=== PATIENT | male | born 1965 | race African-American/Black ===

== ENCOUNTER 2020-03-03 10:46 | Inpatient (IN) | payer OTHER ==
--- NOTE | 2020-03-03 11:06 | BHS.RME ---
Substance Use & Tx History - Substance Use History Alcohol Substance amount: 1 pint vodka Frequency of use: Daily Substance route: Oral Date of Last Use: 03/02/20 Physical/Psych/Mental Status - Behavior General Behavior: Increased activity (restlessness, agitation) Eye Contact: Normal - Cooperativeness Cooperativeness: Cooperative - Thinking Thought Processes: Tight, Logical, Goal Directed - Physical Health Problems Is patient presently having any pain?: No Does patient presently have any injuries (include location): No Does patient currently have a fever: No Is patient : No CIWA Nausea/Vomitin-Int. Nausea w/Dry Heave Muscle Tremors: 5 Anxiety: 2 Agitation: 3 Paroxysmal Sweats: 4-Forehead w/Sweat Beads Orientation: 1-Uncertain about Date Tacttile Disturbances: 0-None Auditory Disturbances: 0-None Visual Disturbances: 0-None Headache: 0-None Present CIWA-Ar Total Score: 19
[2020-03-03 11:39] VITALS: BMI 32.3
--- NOTE | 2020-03-03 12:13 | HP ---
CIWA Score Nausea/Vomitin-Int. Nausea w/Dry Heave Muscle Tremors: 5 Anxiety: 2 Agitation: 3 Paroxysmal Sweats: 4-Forehead w/Sweat Beads Orientation: 1-Uncertain about Date Tacttile Disturbances: 0-None Auditory Disturbances: 0-None Visual Disturbances: 0-None Headache: 0-None Present CIWA-Ar Total Score: 19 - Admission Criteria OASAS Guidelines: Admission for Medically Managed Detox: Requires at least one of the followin. CIWA greater than 12 2. Seizures within the past 24 hours 3. Delirium tremens within the past 24 hours 4. Hallucinations within the past 24 hours 5. Acute intervention needed for co occurring medical disorder 6. Acute intervention needed for co occurring psychiatric disorder 7. Severe withdrawal that cannot be handled at a lower level of care (continued vomiting, continued diarrhea, abnormal vital signs) requiring intravenous medication and/or fluids 8. Admitting History and Physical - Admission Chief Complaint: Mr. Nieves is a 54 yo gentleman who presents to [facility] requesting admission to detox for alcohol use disorder. History of Present Illness: Mr. Nieves is a 54 yo gentleman who presents to [facility] requesting admission to detox for alcohol use disorder. He was treated 5 years ago for alcohol use disorder at [facility]. He relapsed one month ago when his became ill. He states that she had a cardiac arrest at home and has been in [facility] since. He states that she has sustained "brain damage" and will be going to a senior living. PMH: HTN, Asthma PSH; none Psych: none SoC: lives in the [place], alone/ in hospital now Legal: none Substance Use History Alcohol Substance amount: 1 pint vodka Frequency of use: Daily Substance route: Oral Date of Last Use: 03/02/20 Began at age 34y No seizures No blackouts Admits to an eye top coater Benzo: Klonopin: took one of his 's pills last night History Source: Patient Limitations to Obtaining History: No Limitations - Smoking History Smoking history: Current every day smoker Have you smoked in the past 12 months: Yes Aproximately how many cigarettes per day: 1 Admission [facility] Allergies/Adverse Reactions: Allergies Allergy/AdvReac Type Severity Reaction Status Date / Time No Known Allergies Allergy Verified 03/03/20 11:24 Exam Limitations: No Limitations - Ebola screening Have you traveled outside of the country in the last 21 days: No Have you been sick,other than usual withdrawal symptoms: No Do you have a fever: No - Review of Systems Constitutional: Unintentional Wgt. Loss (20 lbs in 4 weeks) EENT: reports: Blurred Vision (glasses for both reading and distance, does not have with him today) Respiratory: reports: No Symptoms reported Cardiac: reports: No Symptoms Reported GI: reports: Nausea : reports: Other (reduced stream) Musculoskeletal: reports: No Symptoms Reported Integumentary: reports: No Symptoms Reported Neuro: reports: No Symptoms reported Endocrine: reports: No Symptoms Reported Psychiatric: reports: Depressed (relates to 's illness) Patient History - Patient Medical History Hx Asthma: Yes Hx Chronic Obstructive Pulmonary Disease (COPD): No Hx Cardiac Disorders: Yes Hx Hypertension: Yes Hx Seizures: No Hx Diabetes: No Hx Gastrointestinal Disorders: No Hx Genitourinary Disorders: No Hx Sexually Transmitted Disorders: No Hx Renal Disease (ESRD): No Hx Depression: No Hx Suicide Attempt: No Hx Schizophrenia: No - Patient Surgical History Past Surgical History: No Hx Neurologic Surgery: No Hx Cataract Extraction: No Hx Cardiac Surgery: No Hx Lung Surgery: No Hx Breast Surgery: No Hx Breast Biopsy: No Hx Abdominal Surgery: No Hx Appendectomy: No Hx Cholecystectomy: No Hx Genitourinary Surgery: No Hx Section: No Hx Orthopedic Surgery: No Anesthesia Reaction: No - PPD History Previous Implant?: Yes Documented Results: Negative w/o proof - Smoking Cessation Smoking history: Current every day smoker Have you smoked in the past 12 months: Yes Aproximately how many cigarettes per day: 1 Hx Chewing Tobacco Use: No Initiated information on smoking cessation: Yes 'Breaking Loose' booklet given: 03/03/20 - Substances abused Alcohol Substance route: Oral Frequency: Daily Amount used: 1 PINT OF VODKA Age of first use: 34 Date of last use: 03/02/20 Admission Physical Exam BHS - Vital Signs Vital Signs: Vital Signs - 24 hr 03/03/20 11:34 Temperature 98.6 F Pulse Rate 134 H Respiratory 20 Rate Blood Pressure 165/118 H - Physical General Appearance: Yes: Within Normal Limits, No Apparent Distress, Nourished, Appropriately Dressed HEENTM: Yes: EOMI, Hearing grossly Normal, Normocephalic, Normal Voice Respiratory: Yes: Lungs Clear, Normal Breath Sounds, No Accessory Muscle Use Neck: Yes: Within Normal Limits, Supple Breast: Yes: Breast Exam Deferred Cardiology: Yes: Regular Rate, S1, S2, Tachycardia Abdominal: Yes: Soft, Decreased BS, Protuberent, Tenderness (right upper quadrant) Back: Yes: Normal Inspection Musculoskeletal: Yes: Within Normal Limits Extremities: Yes: Non-Tender Neurological: Yes: Alert, Normal Response Integumentary: Yes: Within Normal Limits - Diagnostic (1) Alcohol dependence with withdrawal, uncomplicated Current Visit: Yes Status: Acute (2) Essential hypertension Current Visit: Yes Status: Acute (3) Asthma Current Visit: Yes Status: Acute Cleared for Admission S - Detox or Rehab S Level of Care: Medically Managed Detox Regimen/Protocol: Librium Breathalyzer - Breathalyzer Breathalyzer: 0 Urine Drug Screen - Test Device Lot number: [id number] Expiration date: 04/14/21 - Control Is test valid?: Yes - Results Drug screen NEGATIVE: Yes Inpatient Rehab Admission - Rehab Decision to Admit Inpatient rehab admission?: No
[2020-03-03] MEDS ORDERED: MAG HYDROX/AL HYDROX/SIMETH 30 ML UNIT-DOSE CUP PO PRN (12:17)
[2020-03-03] MEDS ORDERED: IBUPROFEN 400 MG TABLET (FP) PO PRN (12:17)
[2020-03-03] MEDS ORDERED: chlordiazePOXIDE HCL 25 MG CAPSULE PO PRN (12:17)
[2020-03-03] MEDS ORDERED: BISMUTH SUBSALICYLATE 524 MG/30 ML UD PO PRN (12:17)
[2020-03-03] MEDS ORDERED: MAGNESIUM HYDROX 2400MG/30ML ORAL SUSPENSION 30 ML CUP PO PRN (12:17)
[2020-03-03] MEDS ORDERED: MAGNESIUM CITRATE 300 ML BOTTLE PO PRN (12:17)
[2020-03-03] MEDS ORDERED: ACETAMINOPHEN 325 MG TABLET (FP) PO PRN ×2 (12:17)
[2020-03-03] MEDS ORDERED: MENTHOL/PHENOL 1 EACH UD MM PRN (12:17)
[2020-03-03] MEDS ORDERED: ONDANSETRON *ODT* 4 MG TABLET SL PRN (12:17)
--- NOTE | 2020-03-03 13:23 | EKG ---
Test Reason : Blood Pressure : / mmHG Vent. Rate : 121 BPM Atrial Rate : 121 BPM P-R Int : 154 ms QRS Dur : 088 ms QT Int : 310 ms P-R-T Axes : 066 054 027 degrees QTc Int : 440 ms SINUS TACHYCARDIA NONSPECIFIC T WAVE ABNORMALITY ABNORMAL ECG NO PREVIOUS ECGS AVAILABLE Confirmed by Oneida Bhardwaj ([id number]) on 03/03/2020 1:23:32 PM Referred By: Confirmed By:Oneida Bhardwaj
[2020-03-03] MEDS: ENALAPRIL MALEATE 10 MG TABLET (FP) PO SCH (13:42)
[2020-03-03] MEDS: hydrOXYzine PAMOATE 25 MG CAPSULE (FP) PO SCH ×3 (13:42→22:17)
[2020-03-03] MEDS: chlordiazePOXIDE HCL 25 MG CAPSULE PO SCH ×2 (17:21→22:17)
[2020-03-03 17:43] LABS: ALBUMIN 3.6 g/dl (3.4-5.0); BILIRUBIN,TOTAL 2.1 mg/dL (0.2-1); CALCIUM 9.3 mg/dL (8.5-10.1); CREATININE 1.2 mg/dL (0.55-1.3); TOT PROT 7.1 g/dl (6.4-8.2)
[2020-03-03 17:49] LABS: HEMATOCRIT 36.7 % (35.4-49); HEMOGLOBIN 12.4 GM/dL (11.7-16.9); MCH 30.5 pg (25.7-33.7); MCHC 33.7 g/dl (32.0-35.9); MEAN CELL VOLUME 90.5 fl (80-96); MEAN PLT VOLUME 10.2 fl (7.5-11.1); PLATELET COUNT 128 K/MM3 (134-434); RBC 4.06 M/mm3 (4.00-5.60); RDW 15.6 % (11.9-15.9)
[2020-03-03 17:56] LABS: POTASSIUM 2.7 mmol/L (3.5-5.1)
[2020-03-03] MEDS ORDERED: POTASSIUM CHLORIDE TABS 20 MEQ TABLET.ER (FP) PO ONE (18:24)
--- NOTE | 2020-03-03 18:24 | PN ---
[facility] Progress Note Note: Potassium is 2.7 CMP Sodium 131 mmol/L (136-145) L 03/03/20 12:00 Potassium 2.7 mmol/L (3.5-5.1) L* 03/03/20 12:00 Chloride 88 mmol/L (98-107) L 03/03/20 12:00 Carbon Dioxide 23 mmol/L (21-32) 03/03/20 12:00 Anion Gap 20 MMOL/L (8-16) H 03/03/20 12:00 BUN 15.0 mg/dL (7-18) 03/03/20 12:00 Creatinine 1.2 mg/dL (0.55-1.3) 03/03/20 12:00 Est GFR (CKD-EPI)AfAm 78.43 03/03/20 12:00 Est GFR (CKD-EPI)NonAf 67.67 03/03/20 12:00 Random Glucose 189 mg/dL (74-106) H 03/03/20 12:00 Calcium 9.3 mg/dL (8.5-10.1) 03/03/20 12:00 Total Bilirubin 2.1 mg/dL (0.2-1) H 03/03/20 12:00 AST 147 U/L (15-37) H 03/03/20 12:00 ALT 114 U/L (13-61) H 03/03/20 12:00 Alkaline Phosphatase 76 U/L (45-117) 03/03/20 12:00 Total Protein 7.1 g/dl (6.4-8.2) 03/03/20 12:00 Albumin 3.6 g/dl (3.4-5.0) 03/03/20 12:00 Vital Signs 03/03/20 16:35 Temperature 98.2 F Pulse Rate 126 H Respiratory 18 Rate Blood Pressure 111/79 O2 Sat by Pulse Oximetry (%) Plan: KCL 40 meq now and 20 meq daily Repeat lytes on 03/05 Banana daily to diet
[2020-03-03] MEDS: METHOCARBAMOL 500 MG TABLET PO PRN (18:37)
[2020-03-03] MEDS: MELATONIN 5 MG TABLETS PO SCH (22:17)
[2020-03-03] MEDS: THIAMINE HCL 100 MG TABLET (FP) PO SCH (22:17)
[2020-03-04] MEDS: hydrOXYzine PAMOATE 25 MG CAPSULE (FP) PO SCH ×5 (05:24→22:18)
[2020-03-04] MEDS: chlordiazePOXIDE HCL 25 MG CAPSULE PO SCH ×4 (05:24→22:18)
[2020-03-04] MEDS ORDERED: POTASSIUM CHLORIDE TABS 20 MEQ TABLET.ER (FP) PO SCH (10:00)
[2020-03-04] MEDS: POTASSIUM CHLORIDE TABS 20 MEQ TABLET.ER (FP) PO SCH ×2 (10:12→22:18)
[2020-03-04] MEDS: ENALAPRIL MALEATE 10 MG TABLET (FP) PO SCH (10:12)
[2020-03-04] MEDS: METHOCARBAMOL 500 MG TABLET PO PRN (10:13)
[2020-03-04] MEDS: PRENATAL VITAMINS W/ FOLIC ACID TABLET (FP) PO SCH (10:13)
[2020-03-04] MEDS: NICOTINE 7 MG/24 HOURS TOPICAL PATCH TD SCH (10:13)
[2020-03-04 15:10] LABS: BLOOD UREA NITROGEN 18.2 mg/dL (7-18); CALCIUM 9.1 mg/dL (8.5-10.1); CREATININE 1.1 mg/dL (0.55-1.3)
--- NOTE | 2020-03-04 15:44 | PN ---
S CIWA - CIWA Score Nausea/Vomitin Muscle Tremors: 3 Anxiety: 3 Agitation: 3 Paroxysmal Sweats: No Perspiration Orientation: 0-Oriented Tacttile Disturbances: 1-Very Mild Itch/Numbness Auditory Disturbances: 0-None Visual Disturbances: 0-None Headache: 2-Mild CIWA-Ar Total Score: 14 S Progress Note (SOAP) Subjective: alert,irritable,anxious,interrupted sleep,tremor,body ache Objective: 03/04/20 15:42 Laboratory Last Values WBC 7.0 K/mm3 (4.0-10.0) 03/03/20 12:00 RBC 4.06 M/mm3 (4.00-5.60) 03/03/20 12:00 Hgb 12.4 GM/dL (11.7-16.9) 03/03/20 12:00 Hct 36.7 % (35.4-49) 03/03/20 12:00 MCV 90.5 fl (80-96) 03/03/20 12:00 MCH 30.5 pg (25.7-33.7) 03/03/20 12:00 MCHC 33.7 g/dl (32.0-35.9) 03/03/20 12:00 RDW 15.6 % (11.9-15.9) 03/03/20 12:00 Plt Count 128 K/MM3 (134-434) L 03/03/20 12:00 MPV 10.2 fl (7.5-11.1) 03/03/20 12:00 Sodium 136 mmol/L (136-145) 03/04/20 11:30 Potassium 3.0 mmol/L (3.5-5.1) L 03/04/20 11:30 Chloride 95 mmol/L (98-107) L 03/04/20 11:30 Carbon Dioxide 29 mmol/L (21-32) 03/04/20 11:30 Anion Gap 11 MMOL/L (8-16) 03/04/20 11:30 BUN 18.2 mg/dL (7-18) H 03/04/20 11:30 Creatinine 1.1 mg/dL (0.55-1.3) 03/04/20 11:30 Est GFR (CKD-EPI)AfAm 87.13 03/04/20 11:30 Est GFR (CKD-EPI)NonAf 75.17 03/04/20 11:30 Random Glucose 186 mg/dL (74-106) H 03/04/20 11:30 Calcium 9.1 mg/dL (8.5-10.1) 03/04/20 11:30 Total Bilirubin 2.1 mg/dL (0.2-1) H 03/03/20 12:00 AST 147 U/L (15-37) H 03/03/20 12:00 ALT 114 U/L (13-61) H 03/03/20 12:00 Alkaline Phosphatase 76 U/L (45-117) 03/03/20 12:00 Total Protein 7.1 g/dl (6.4-8.2) 03/03/20 12:00 Albumin 3.6 g/dl (3.4-5.0) 03/03/20 12:00 Syphilis Serology Non-reactive (NONREACTIVE) 03/03/20 12:00
--- NOTE | 2020-03-04 18:18 | CONSULT ---
[facility] Psychiatric Consult - Data Date of interview: 03/04/20 Admission source: [facility] Identifying data: First visit to [facility] and admission to [address] [place] [address] for this 54 y/o AA male self-referred for detoxification treatment. BRIA issues : alcohol, nicotine. Patient is , father of six, domiciled, unemployed and supported on food stamps. Substance Abuse History: Discussed with the patient. BRIA profile as follows : Smoking history: Current every day smoker. Have you smoked in the past 12 months: Yes. Aproximately how many cigarettes per day: 1. Hx Chewing Tobacco Use: No. Initiated information on smoking cessation: Yes. 'Breaking Loose' b ooklet given: 03/03/20. - Substances abused. Alcohol. Substance route: Oral. Frequency: Daily. Amount used: 1 PINT OF VODKA. Age of first use: 34. Date of last use: 03/02/20 Medical History: Medical history is remarkable for obesity, bronchial asthma and hypertension. Psychiatric History: Patient denies history of psychiatric hospitalizations, OPD care or suicide attempts. Physical/Sexual Abuse/Trauma History: Stressors : illness of , poverty, addictions and chronic unemployment. Additional Comment: Negative toxicology. Mental Status Exam - Mental Status Exam Alert and Oriented to: Time, Place, Person Cognitive Function: Good Patient Appearance: Unkempt, Disheveled Mood: Nervous, Withdrawn Affect: Mood Congruent, Constricted Patient Behavior: Fatigued, Appropriate, Cooperative Speech Pattern: Clear, Appropriate Voice Loudness: Normal Thought Process: Intact, Goal Oriented Thought Disorder: Not Present Hallucinations: Denies Suicidal Ideation: Denies Homicidal Ideation: Denies Insight/Judgement: Poor Sleep: Well Appetite: Good Gait/Station: Normal Psychiatric Findings - Problem List ([place] 1, 2,3) (1) Alcohol dependence with withdrawal, uncomplicated Current Visit: Yes Status: Acute (2) Nicotine dependence Current Visit: Yes Status: Chronic - Initial Treatment Plan Initial Treatment Plan: Psychoeducation. Support. Sleep hygiene. Detoxification. Observation.
[2020-03-04] MEDS: THIAMINE HCL 100 MG TABLET (FP) PO SCH (22:18)
[2020-03-04] MEDS: MELATONIN 5 MG TABLETS PO SCH (22:18)
[2020-03-05] MEDS: hydrOXYzine PAMOATE 25 MG CAPSULE (FP) PO SCH ×5 (05:49→22:10)
[2020-03-05] MEDS: chlordiazePOXIDE HCL 25 MG CAPSULE PO SCH ×4 (05:49→22:10)
[2020-03-05] MEDS: ALBUTEROL SO4 HFA INHALER IH PRN ×2 (07:31→14:04)
[2020-03-05 09:58] LABS: INR 0.97 (0.83-1.09); PROTHROMBIN TIME (PATIENT) 11.4 SEC (9.7-13.0)
[2020-03-05 10:08] LABS: ALBUMIN 3.1 g/dl (3.4-5.0); BLOOD UREA NITROGEN 14.9 mg/dL (7-18); CALCIUM 9.9 mg/dL (8.5-10.1); POTASSIUM 3.1 mmol/L (3.5-5.1)
[2020-03-05] MEDS: ENALAPRIL MALEATE 10 MG TABLET (FP) PO SCH (10:08)
[2020-03-05] MEDS: POTASSIUM CHLORIDE TABS 20 MEQ TABLET.ER (FP) PO SCH (10:08)
[2020-03-05] MEDS: PRENATAL VITAMINS W/ FOLIC ACID TABLET (FP) PO SCH (10:08)
[2020-03-05] MEDS: METHOCARBAMOL 500 MG TABLET PO PRN (10:08)
[2020-03-05 10:11] LABS: BILIRUBIN,TOTAL 0.4 mg/dL (0.2-1); CREATININE 0.9 mg/dL (0.55-1.3); TOT PROT 6.2 g/dl (6.4-8.2)
[2020-03-05] MEDS: NICOTINE POLACRILEX 2 MG GUM BUC PRN (10:11)
[2020-03-05] MEDS: NICOTINE 7 MG/24 HOURS TOPICAL PATCH TD SCH (10:11)
--- NOTE | 2020-03-05 14:37 | PN ---
[facility] CIWA - CIWA Score Nausea/Vomitin-Mild Nausea/No Vomiting Muscle Tremors: 2 Anxiety: 2 Agitation: 2 Paroxysmal Sweats: No Perspiration Orientation: 0-Oriented Tacttile Disturbances: 0-None Auditory Disturbances: 0-None Visual Disturbances: 0-None Headache: 1-Very Mild CIWA-Ar Total Score: 8 S Progress Note (SOAP) Subjective: alert,irritable,anxious,interrupted sleep,mild wheezing Objective: 03/05/20 14:33 Vital Signs Temperature 98.0 F 03/05/20 12:48 Pulse Rate 111 H 03/05/20 12:48 Respiratory Rate 18 03/05/20 12:48 Blood Pressure 117/81 03/05/20 12:48 O2 Sat by Pulse Oximetry (%) 98 03/05/20 12:48 Laboratory Last Values WBC 7.0 K/mm3 (4.0-10.0) 03/03/20 12:00 RBC 4.06 M/mm3 (4.00-5.60) 03/03/20 12:00 Hgb 12.4 GM/dL (11.7-16.9) 03/03/20 12:00 Hct 36.7 % (35.4-49) 03/03/20 12:00 MCV 90.5 fl (80-96) 03/03/20 12:00 MCH 30.5 pg (25.7-33.7) 03/03/20 12:00 MCHC 33.7 g/dl (32.0-35.9) 03/03/20 12:00 RDW 15.6 % (11.9-15.9) 03/03/20 12:00 Plt Count 128 K/MM3 (134-434) L 03/03/20 12:00 MPV 10.2 fl (7.5-11.1) 03/03/20 12:00 PT with INR 11.40 SEC (9.7-13.0) 03/05/20 08:00 INR 0.97 (0.83-1.09) 03/05/20 08:00 Sodium 139 mmol/L (136-145) 03/05/20 07:45 Potassium 3.1 mmol/L (3.5-5.1) L 03/05/20 07:45 Chloride 99 mmol/L (98-107) 03/05/20 07:45 Carbon Dioxide 30 mmol/L (21-32) 03/05/20 07:45 Anion Gap 10 MMOL/L (8-16) 03/05/20 07:45 BUN 14.9 mg/dL (7-18) 03/05/20 07:45 Creatinine 0.9 mg/dL (0.55-1.3) 03/05/20 07:45 Est GFR (CKD-EPI)AfAm 111.05 03/05/20 07:45 Est GFR (CKD-EPI)NonAf 95.81 03/05/20 07:45 Random Glucose 99 mg/dL (74-106) 03/05/20 07:45 Fasting Glucose 103 mg/dL (74-106) 03/05/20 07:45 Hemoglobin A1c % 5.7 % (4.2-6.3) 03/05/20 08:00 Calcium 9.9 mg/dL (8.5-10.1) 03/05/20 07:45 Total Bilirubin 0.4 mg/dL (0.2-1) 03/05/20 07:45 AST 209 U/L (15-37) H 03/05/20 07:45 ALT 148 U/L (13-61) H 03/05/20 07:45 Alkaline Phosphatase 111 U/L (45-117) 03/05/20 07:45 Total Protein 6.2 g/dl (6.4-8.2) L 03/05/20 07:45 Albumin 3.1 g/dl (3.4-5.0) L 03/05/20 07:45 Syphilis Serology Non-reactive (NONREACTIVE) 03/03/20 12:00 COVID-19 (MICHELLE) Not detected (Not Detected) 03/03/20 13:40 Assessment: 03/05/20 14:34 withdrawal symptom Plan: continue detox librium regimen .albuterol inhaler 2 puffs q 4 hrs prn,duoneb nebulizer 1 amp q 6 hrs prn,k replacement,repeat amp in am
[2020-03-05] MEDS: ALBUTEROL SO4 2.5/IPRATROPIUM 0.5 INH SOL 3 ML VIAL.NEB. NEB PRN (14:58)
[2020-03-05] MEDS: POTASSIUM CHLORIDE ORAL LIQUID 20 MEQ/15 ML PO SCH (22:09)
[2020-03-05] MEDS: THIAMINE HCL 100 MG TABLET (FP) PO SCH (22:10)
[2020-03-05] MEDS: MELATONIN 5 MG TABLETS PO SCH (22:10)
[2020-03-06] MEDS ORDERED: chlordiazePOXIDE HCL 10 MG CAPSULE PO PRN
[2020-03-06] MEDS: ALBUTEROL SO4 2.5/IPRATROPIUM 0.5 INH SOL 3 ML VIAL.NEB. NEB PRN ×2 (02:02→14:40)
[2020-03-06] MEDS: hydrOXYzine PAMOATE 25 MG CAPSULE (FP) PO SCH ×5 (05:17→22:29)
[2020-03-06] MEDS: chlordiazePOXIDE HCL 10 MG CAPSULE PO SCH ×4 (05:18→22:29)
[2020-03-06 10:24] LABS: ALBUMIN 2.8 g/dl (3.4-5.0); BILIRUBIN,TOTAL 0.6 mg/dL (0.2-1); BLOOD UREA NITROGEN 13.9 mg/dL (7-18); CALCIUM 9.1 mg/dL (8.5-10.1); CREATININE 0.9 mg/dL (0.55-1.3); POTASSIUM 3.5 mmol/L (3.5-5.1); TOT PROT 5.6 g/dl (6.4-8.2)
[2020-03-06] MEDS: ENALAPRIL MALEATE 10 MG TABLET (FP) PO SCH (11:19)
[2020-03-06] MEDS: PRENATAL VITAMINS W/ FOLIC ACID TABLET (FP) PO SCH (11:19)
[2020-03-06] MEDS: POTASSIUM CHLORIDE ORAL LIQUID 20 MEQ/15 ML PO SCH ×2 (11:19→22:29)
[2020-03-06] MEDS: NICOTINE 7 MG/24 HOURS TOPICAL PATCH TD SCH (11:21)
--- NOTE | 2020-03-06 12:54 | PN ---
S CIWA - CIWA Score Nausea/Vomitin-Mild Nausea/No Vomiting Muscle Tremors: 2 Anxiety: 2 Agitation: 2 Paroxysmal Sweats: No Perspiration Orientation: 0-Oriented Tacttile Disturbances: 0-None Auditory Disturbances: 0-None Visual Disturbances: 0-None Headache: 1-Very Mild CIWA-Ar Total Score: 8 BHS Progress Note (SOAP) Subjective: alert,irritable,anxious,interrupted sleep,no shortness of breath,no wheezing Objective: 03/06/20 12:53 Vital Signs Temperature 97.3 F L 03/06/20 09:15 Pulse Rate 116 H 03/06/20 09:15 Respiratory Rate 03/06/20 09:15 Blood Pressure 122/88 03/06/20 09:15 O2 Sat by Pulse Oximetry (%) 96 03/06/20 06:05 Laboratory Results - last 24 hr 03/05/20 03/05/20 03/06/20 16:32 17:34 07:02 Sodium Potassium Chloride Carbon Dioxide Anion Gap BUN Creatinine Est GFR (CKD-EPI)AfAm Est GFR (CKD-EPI)NonAf POC Glucometer 402 174 202 Random Glucose Calcium Total Bilirubin AST ALT Alkaline Phosphatase Total Protein Albumin 03/06/20 03/06/20 08:00 11:26 Sodium 141 Potassium 3.5 Chloride 104 Carbon Dioxide 30 Anion Gap 7 L BUN 13.9 Creatinine 0.9 Est GFR (CKD-EPI)AfAm 111.05 Est GFR (CKD-EPI)NonAf 95.81 POC Glucometer 155 Random Glucose 152 H Calcium 9.1 Total Bilirubin 0.6 AST 94 H ALT 106 H Alkaline Phosphatase 106 Total Protein 5.6 L Albumin 2.8 L fluctuating blood glucose 03/06/20 12:54 03/06/20 12:55 hb a1c is 5.7 Assessment: 03/06/20 12:55 withdrawal symptom Plan: continue detox ,librium regimen,bgm monitoring achs
[2020-03-06] MEDS: THIAMINE HCL 100 MG TABLET (FP) PO SCH (22:29)
[2020-03-06] MEDS: MELATONIN 5 MG TABLETS PO SCH (22:29)
[2020-03-06] MEDS: NICOTINE POLACRILEX 2 MG GUM BUC PRN (22:31)
[2020-03-07] MEDS ORDERED: guaiFENesin/D-METHORPHAN HB 10 ML UNIT-DOSE CUPS PO PRN (00:43)
--- NOTE | 2020-03-07 00:46 | PN ---
[facility] Progress Note Note: Patient complains of cough Vital Signs Temperature 97.5 F L 03/06/20 20:31 Pulse Rate 106 H 03/06/20 20:31 Respiratory Rate 20 03/06/20 20:31 Blood Pressure 154/95 03/06/20 20:31 O2 Sat by Pulse Oximetry (%) 100 03/06/20 20:31 Guaifenesin DM (Robitussin DM ) 10 mL oral Q6H prn ordered
[2020-03-07] MEDS: ALBUTEROL SO4 2.5/IPRATROPIUM 0.5 INH SOL 3 ML VIAL.NEB. NEB PRN ×3 (01:10→20:30)
[2020-03-07] MEDS: chlordiazePOXIDE HCL 10 MG CAPSULE PO SCH ×2 (05:12→18:20)
[2020-03-07] MEDS: hydrOXYzine PAMOATE 25 MG CAPSULE (FP) PO SCH ×5 (05:13→22:06)
[2020-03-07] MEDS: POTASSIUM CHLORIDE ORAL LIQUID 20 MEQ/15 ML PO SCH (10:26)
[2020-03-07] MEDS: PRENATAL VITAMINS W/ FOLIC ACID TABLET (FP) PO SCH (10:26)
[2020-03-07] MEDS: ENALAPRIL MALEATE 10 MG TABLET (FP) PO SCH (10:26)
[2020-03-07] MEDS: NICOTINE 7 MG/24 HOURS TOPICAL PATCH TD SCH (10:26)
[2020-03-07] MEDS: NICOTINE POLACRILEX 2 MG GUM BUC PRN (10:27)
[2020-03-07] MEDS ORDERED: diphenhydrAMINE HCL 25 MG CAPSULE (FP) PO ONE (11:37)
--- NOTE | 2020-03-07 14:04 | PN ---
[facility] CIWA - CIWA Score Nausea/Vomitin-Mild Nausea/No Vomiting Muscle Tremors: 1-None Visible, but [place] Switch Anxiety: 1-Mildly Anxious Agitation: 1-Slight > Activity Paroxysmal Sweats: No Perspiration Orientation: 0-Oriented Tacttile Disturbances: 0-None Auditory Disturbances: 0-None Visual Disturbances: 0-None Headache: 1-Very Mild CIWA-Ar Total Score: 5 BHS Progress Note (SOAP) Subjective: alert,anxious,interrupted sleep,body ache,coughing earlier Objective: 03/07/20 14:02 Vital Signs Temperature 97.3 F L 03/07/20 12:37 Pulse Rate 115 H 03/07/20 12:37 Respiratory Rate 18 03/07/20 12:37 Blood Pressure 146/96 03/07/20 12:37 O2 Sat by Pulse Oximetry (%) 95 03/07/20 12:37 03/07/20 14:03 bgm 199 Assessment: 03/07/20 14:03 withdrawal symptom lung mild wheezing Plan: continue detox librium regimen,life style change on diet,no sugar,encourage oral fluid,water,discharge in am,follow up with his ,medical provider for medical problem follow up and after care program as arrangement
[2020-03-07] MEDS: MELATONIN 5 MG TABLETS PO SCH (22:06)
[2020-03-07] MEDS: THIAMINE HCL 100 MG TABLET (FP) PO SCH (22:06)
[2020-03-08] MEDS ORDERED: chlordiazePOXIDE HCL 10 MG CAPSULE PO ONE (05:00)
[2020-03-08] MEDS: hydrOXYzine PAMOATE 25 MG CAPSULE (FP) PO SCH ×2 (05:26→10:09)
[2020-03-08 09:19] VITALS: BP 177/106; PULSE 112; TEMP 97.7
[2020-03-08] MEDS: PRENATAL VITAMINS W/ FOLIC ACID TABLET (FP) PO SCH (10:08)
[2020-03-08] MEDS: NICOTINE 7 MG/24 HOURS TOPICAL PATCH TD SCH (10:08)
[2020-03-08] MEDS: NICOTINE POLACRILEX 2 MG GUM BUC PRN (10:08)
[2020-03-08] MEDS: ENALAPRIL MALEATE 10 MG TABLET (FP) PO SCH (10:08)
--- NOTE | 2020-03-08 15:13 | DS ---
[facility] Detox Discharge Summary Admission Date: 03/03/20 Discharge Date: 03/08/20 - History Present History: Alcohol Dependence Additional Comments: Patient returning home, reports that he will seek out local Outpatient Support Group Program for aftercare. Patient was discharged from Detox Unit in stable medical condition. Pertinent Past History: Asthma, HTN, Nicotine Dependence. - Physical Exam Results Vital Signs: Vital Signs Temperature 97.7 F 03/08/20 08:43 Pulse Rate 112 H 03/08/20 08:43 Respiratory Rate 03/08/20 08:43 Blood Pressure 177/106 H 03/08/20 08:43 O2 Sat by Pulse Oximetry (%) 99 03/08/20 08:43 Pertinent Admission Physical Exam Findings: WITHDRAWAL SYMPTOMS. Laboratory Tests 03/03/20 03/03/20 03/03/20 12:00 12:00 12:00 WBC 7.0 RBC 4.06 Hgb 12.4 Hct 36.7 MCV 90.5 MCH 30.5 MCHC 33.7 RDW 15.6 Plt Count 128 L MPV 10.2 PT with INR INR Sodium 131 L Potassium 2.7 L* Chloride 88 L Carbon Dioxide 23 Anion Gap 20 H BUN 15.0 Creatinine 1.2 Est GFR (CKD-EPI)AfAm 78.43 Est GFR (CKD-EPI)NonAf 67.67 POC Glucometer Random Glucose 189 H Fasting Glucose Hemoglobin A1c % Calcium 9.3 Total Bilirubin 2.1 H AST 147 H ALT 114 H Alkaline Phosphatase 76 Total Protein 7.1 Albumin 3.6 Syphilis Serology Non-reactive COVID-19 (MICHELLE) 03/03/20 03/04/20 03/05/20 13:40 11:30 07:45 WBC RBC Hgb Hct MCV MCH MCHC RDW Plt Count MPV PT with INR INR Sodium 136 139 Potassium 3.0 L 3.1 L Chloride 95 L 99 Carbon Dioxide 29 30 Anion Gap 11 10 BUN 18.2 H 14.9 Creatinine 1.1 0.9 Est GFR (CKD-EPI)AfAm 87.13 111.05 Est GFR (CKD-EPI)NonAf 75.17 95.81 POC Glucometer Random Glucose 186 H 99 Fasting Glucose Hemoglobin A1c % Calcium 9.1 9.9 Total Bilirubin 0.4 AST 209 H ALT 148 H Alkaline Phosphatase 111 Total Protein 6.2 L Albumin 3.1 L Syphilis Serology COVID-19 (MICHELLE) Not detected 03/05/20 03/05/20 03/05/20 07:45 08:00 08:00 WBC RBC Hgb Hct MCV MCH MCHC RDW Plt Count MPV PT with INR 11.40 INR 0.97 Sodium Potassium Chloride Carbon Dioxide Anion Gap BUN Creatinine Est GFR (CKD-EPI)AfAm Est GFR (CKD-EPI)NonAf POC Glucometer Random Glucose Fasting Glucose 103 Hemoglobin A1c % 5.7 Calcium Total Bilirubin AST ALT Alkaline Phosphatase Total Protein Albumin Syphilis Serology COVID-19 (MICHELLE) 03/05/20 03/05/20 03/06/20 16:32 17:34 07:02 WBC RBC Hgb Hct MCV MCH MCHC RDW Plt Count MPV PT with INR INR Sodium Potassium Chloride Carbon Dioxide Anion Gap BUN Creatinine Est GFR (CKD-EPI)AfAm Est GFR (CKD-EPI)NonAf POC Glucometer 402 174 202 Random Glucose Fasting Glucose Hemoglobin A1c % Calcium Total Bilirubin AST ALT Alkaline Phosphatase Total Protein Albumin Syphilis Serology COVID-19 (MICHELLE) 03/06/20 03/06/20 03/06/20 08:00 11:26 16:26 WBC RBC Hgb Hct MCV MCH MCHC RDW Plt Count MPV PT with INR INR Sodium 141 Potassium 3.5 Chloride 104 Carbon Dioxide 30 Anion Gap 7 L BUN 13.9 Creatinine 0.9 Est GFR (CKD-EPI)AfAm 111.05 Est GFR (CKD-EPI)NonAf 95.81 POC Glucometer 155 146 Random Glucose 152 H Fasting Glucose Hemoglobin A1c % Calcium 9.1 Total Bilirubin 0.6 AST 94 H ALT 106 H Alkaline Phosphatase 106 Total Protein 5.6 L Albumin 2.8 L Syphilis Serology COVID-19 (MICHELLE) 03/06/20 03/07/20 03/07/20 21:33 06:29 17:10 WBC RBC Hgb Hct MCV MCH MCHC RDW Plt Count MPV PT with INR INR Sodium Potassium Chloride Carbon Dioxide Anion Gap BUN Creatinine Est GFR (CKD-EPI)AfAm Est GFR (CKD-EPI)NonAf POC Glucometer 160 199 191 Random Glucose Fasting Glucose Hemoglobin A1c % Calcium Total Bilirubin AST ALT Alkaline Phosphatase Total Protein Albumin Syphilis Serology COVID-19 (MICHELLE) 03/07/20 03/08/20 21:34 05:28 WBC RBC Hgb Hct MCV MCH MCHC RDW Plt Count MPV PT with INR INR Sodium Potassium Chloride Carbon Dioxide Anion Gap BUN Creatinine Est GFR (CKD-EPI)AfAm Est GFR (CKD-EPI)NonAf POC Glucometer 193 138 Random Glucose Fasting Glucose Hemoglobin A1c % Calcium Total Bilirubin AST ALT Alkaline Phosphatase Total Protein Albumin Syphilis Serology COVID-19 (MICHELLE) Lab Results noted. - Treatment Hospital Course: Detox Protocol Followed, Detoxed Safely, Responded well, Discharged Condition Good Patient has Accepted a Rehab Referral to: Patient will seek out local Outpatient Support Group Program for aftercare. - Medication Discharge Medications: Ambulatory Orders Enalapril Maleate [Vasotec] 20 mg PO DAILY 03/03/20 Albuterol Sulfate Inhaler - [Ventolin Hfa Inhaler -] 2 inh IH Q6H PRN #1 inhaler 03/08/20 - Diagnosis (1) Alcohol dependence with withdrawal, uncomplicated Status: Acute (2) Asthma Status: Acute Qualifiers: Asthma severity: unspecified severity Asthma persistence: unspecified Asthma complication type: uncomplicated Qualified Code(s): J45.909 - Unspecified asthma, uncomplicated (3) Essential hypertension Status: Acute (4) Nicotine dependence Status: Chronic Qualifiers: Nicotine product type: cigarettes Substance use status: uncomplicated Qualified Code(s): F17.210 - Nicotine dependence, cigarettes, uncomplicated - AMA Did Patient Leave Against Medical Advice: No
== END 2020-03-08 10:32 | disposition home or self-care (01) | DRG 775 ==
LOC: YASAS 10:46 → Y3N 12:00
PROVIDERS: ADMIT Allergy & Immunology; ATTEND Allergy & Immunology
PROC: HZ2ZZZZ Detoxification Services for Substance Abuse Treatment (ICD-10-PCS; principal; 2020-03-03)
DX: F10.230 Alcohol dependence with withdrawal, uncomplicated (principal); F17.210 Nicotine dependence, cigarettes, uncomplicated; I10 Essential (primary) hypertension; J45.909 Unspecified asthma, uncomplicated; R05 Cough; E66.9 Obesity, unspecified; Z68.32 Body mass index [BMI] 32.0-32.9, adult; Z56.0 Unemployment, unspecified
CPT/HCPCS: 36415; 80048; 80053; 82947; 82962; 83036; 85027; 85610; 86780; 93005; 93010; 94640; U0003